=== PATIENT | female | born 1995 | race Hispanic/Latino ===

== ENCOUNTER 2022-04-07 12:59 | Outpatient (CLI) | payer OTHER | END 2022-04-07 13:00 | disposition home or self-care (01) | LOC: CSHULT 12:59 | PROVIDERS: ATTEND Family Medicine | DX: Z34.82 Encounter for supervision of other normal pregnancy, second trimester (principal); Z3A.28 28 weeks gestation of pregnancy | CPT/HCPCS: 76805 ==